=== PATIENT | female | born 1985 | race Two or more races ===

== ENCOUNTER 2016-05-11 13:57 | Emergency (ER) | payer OTHER ==
[~2016-05-11] VITALS: Ht 177.8 cm; Wt 96.2 kg
[~2016-05-11 13:57] MED LIST: PREN-155
--- NOTE | 2016-05-11 14:10 | NUR ---
PT BIB SELF C/O VB INTERMITTENTLY WITHOUT C/O PAIN. PT REPORTS SHE MAY BE AT 23 WEEKS. LAST CARE AND US IN EARLY FEB AT [facility]. PT STATES SHE TOOK A URINE PREG TEST LAST WEEK AT "A CLINIC" AND IT WAS NEGATIVE, AND STATES "I DON'T FEEL LIKE I'M ". NAD NOTED. RESP EVEN UNLABORED. SKIN WARM NONDIAPHORETIC. IN ER OB BED.
[2016-05-11 14:50] LABS: BASOPHILS % (AUTO) 0.5 % (0.0-2.0); EOSINOPHILS % (AUTO) 0.5 % (0.0-6.0); HEMATOCRIT 30 % (33-45); HEMOGLOBIN 11.3 g/dL (11.5-14.8); LYMPHOCYTES # (AUTO) 1.3 /CMM (0.8-4.8); MEAN CORPUSCULAR HEMOGLOBIN 40 PG (26.0-33.0); MEAN CORPUSCULAR HGB CONC 38 g/dl (31.0-36.0); MEAN CORPUSCULAR VOLUME 103 fL (82-100); MONOCYTES # (AUTO) 0.4 /CMM (0.1-1.30); MONOCYTES % (AUTO) 5.5 % (2.0-12.0); NEUTROPHILS # (AUTO) 5.7 /CMM (1.8-8.9); NEUTROPHILS % (AUTO) 75.5 % (43.0-81.0); PLATELET COUNT (AUTO) 323 /CMM (150-450); RDW COEFFICIENT OF VARIATION 13.2 (11.5-15.0); RED BLOOD CELL COUNT(AUTO) 2.85 MIL/uL (4.0-5.2); WHITE BLOOD COUNT (AUTO) 7.4 K/uL (4.3-11.0)
[2016-05-11 14:53] LABS: APPEARANCE,URINE SL CLOUDY (CLEAR); BILIRUBIN,URINE 1+ (NEGATIVE); BLOOD, URINE 3+ Ery/uL (NEGATIVE); COLOR,URINE RED (YELLOW); KETONES,URINE NEGATIVE (NEGATIVE); LEUKOCYTE ESTERASE ,URINE NEGATIVE (NEGATIVE); NITRITE, URINE NEGATIVE (NEGATIVE); PH,URINE 6.5 (5.0-8.0); PROTEIN,URINE 1+ mg/dl (NEGATIVE); UGLUCOSE NEGATIVE (NEGATIVE); UROBILINOGEN,URINE 0.2 EU/dL (0.2)
[2016-05-11 15:00] LABS: ADD URINE CULTURE NO; BACTERIA,URINE None seen /HPF (None Seen); RBC,URINE TOO NUMEROUS TO COUN /HPF (0-2); SQUAMOUS EPITHELIAL CELL,UR Few /HPF (None Seen); WBC,URINE 0-2 /HPF (0-3)
--- NOTE | 2016-05-11 16:12 | NUR ---
PT ELOPED FROM FACILITY. NOTIFIED.
[2016-05-11 16:32] VITALS: BP 133/74
== END 2016-05-11 16:33 | disposition left against medical advice (07) ==
LOC: ER 14:04
DX: O03.9 Complete or unspecified spontaneous abortion without complication (principal); E11.9 Type 2 diabetes mellitus without complications
CPT/HCPCS: 36415; 76856-TC; 81000-TC; 84702-TC; 85025-TC; A4606; Z7610